=== PATIENT | female | born 1975 | race Caucasian/White ===

== ENCOUNTER 2021-05-29 10:55 | Emergency (ER) | payer OTHER, SELFPAY ==
[2021-05-29 11:05] VITALS: BP 114/66; PULSE 93; RESP 16; TEMP 36.1; O2SAT 100
--- NOTE | 2021-05-29 11:06 | ED.HA ---
HPI - Headache General Chief Complaint: Headache Stated Complaint: headache Time Seen by Provider: 05/29/21 11:07 Source: patient, RN notes reviewed and old records reviewed Mode of arrival: ambulatory Limitations: no limitations History of Present Illness HPI Narrative: 45-year-old female presents to the [facility] with complaints of a headache. Has taken Imitrex prior to arrival. Patient reports that this feels like her typical migraine on the right side of her head. Photo and phono sensitivity. Reports nausea. No blurry vision or change in vision. Related Data Home Medications Medication Instructions Recorded Confirmed carbidopa 25 mg-levodopa 100 mg 1 tablet PO TID 12/27/20 03/26/21 tablet divalproex 250 mg tablet,extended PO 12/27/20 03/26/21 release 24 hr gabapentin 300 mg capsule 300 mg PO TID 12/27/20 03/26/21 naltrexone 50 mg tablet 50 mg PO DAILY 12/27/20 03/26/21 ondansetron 8 mg disintegrating 8 mg PO Q8H 12/27/20 03/26/21 tablet prazosin 1 mg capsule 1 mg PO QHS 12/27/20 03/26/21 prazosin 2 mg capsule 2 mg PO QHS 12/27/20 03/26/21 tizanidine 4 mg capsule 4 mg PO TID PRN 12/27/20 03/26/21 topiramate 50 mg tablet 50 mg PO BID 12/27/20 03/26/21 duloxetine 60 mg capsule,delayed 60 mg PO BID 01/04/21 03/26/21 release Allergies Allergy/AdvReac Type Severity Reaction Status Date / Time latex Allergy Unknown Rash Verified 01/04/21 07:27 Review of Systems Review of Systems: All systems reviewed & are unremarkable except as noted in HPI and below Constitutional: Constitutional: Reports no additional constitutional complaints, Denies chills and Denies fever(s) Eyes: Eyes: Reports as per HPI, Denies change in vision and Reports photophobia ENT: Reports system reviewed and no additional complaints, except as documented Cardiovascular: Cardiovascular: Reports no additional cardiovascular complaints and Denies chest pain Respiratory: Respiratory: Reports no additional respiratory complaints, Denies cough and Denies dyspnea Gastrointestinal: Gastrointestinal: Reports no additional gastrointestinal complaints Musculoskeletal: Musculoskeletal: Reports no additional musculoskeletal complaints Integumentary/Breasts: Skin/Breast: Reports system reviewed and no additional complaints, except as docu Neurologic: Reports as per HPI, Denies confusion, Denies vertigo, Denies dizziness, Denies syncope, Reports headache(s), Denies focal weakness, Denies numbness and Denies weakness Psychiatric: Psychiatric: Reports no additional psychiatric complaints Allergic/Immunologic: Allergic/Immunologic: Reports no additional allergic/immunologic complaints PMFSH Past Medical History Medical History Allergies Anemia Anxiety Fibromyalgia GERD (gastroesophageal reflux disease) Headache IBS (irritable bowel syndrome) Major depressive disorder with current active episode Surgical History Surgical History History of esophagogastroduodenoscopy Family History Family History Father Alcoholism Depression Mother Diabetes mellitus Hypertension Depression Heart disease Cerebrovascular accident Daughter Depression Grandparent Hypertension Heart disease Cerebrovascular accident Social History Social History Smoking status: Never smoker Alcohol intake: current Comments At the time of my signature, I reviewed and agree with the nursing past medical, surgical, social, and family history. There is no relevant family history pertinent to the patient complaint. Exam Const: General: no acute distress, alert and ill appearing chronically Nutritional Appearance: well nourished Orientation/consciousness: patient oriented x3 Limitations: no limitations HENMT: Head: normal to inspection Ears: external ears n
[2021-05-29] MEDS: KETOROLAC (*BKC) 60 MG/2 ML VIAL IM (11:27)
[2021-05-29] MEDS: ONDANSETRON HCL ODT 4 MG TABLET PO (11:28)
== END 2021-05-29 12:14 | disposition home or self-care (01) ==
PROVIDERS: Emergency Provider Nurse Practitioner; PCP Internal Medicine
DX: G43.909 Migraine, unspecified, not intractable, without status migrainosus (principal); D64.9 Anemia, unspecified; M79.7 Fibromyalgia; K21.9 Gastro-esophageal reflux disease without esophagitis
CPT/HCPCS: 96372; 99213; A9270; G0463; J1885

== ENCOUNTER 2021-06-14 17:09 | Emergency (ER) | payer OTHER, SELFPAY ==
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
[2021-06-14 17:08] VITALS: BP 115/78; PULSE 104; RESP 20; TEMP 37.3; O2SAT 99
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
[2021-06-14 18:27] VITALS: BP 116/68; PULSE 104; RESP 19; O2SAT 100
[2021-06-14] MEDS: LORazepam INJ (*CRX) 2 MG/ML VIAL 1 MG IV PUSH (19:34)
== END 2021-06-14 20:47 | disposition home or self-care (01) ==
PROVIDERS: Emergency Provider Emergency Medicine; PCP Internal Medicine
DX: M25.512 Pain in left shoulder (principal); S51.012A Laceration without foreign body of left elbow, initial encounter; S09.90XA Unspecified injury of head, initial encounter; G20 Parkinson's disease; M79.7 Fibromyalgia; K21.9 Gastro-esophageal reflux disease without esophagitis; K58.9 Irritable bowel syndrome, unspecified; F43.10 Post-traumatic stress disorder, unspecified; F41.9 Anxiety disorder, unspecified; Z86.2 Personal history of diseases of the blood and blood-forming organs and certain disorders involving the immune mechanism; V49.40XA Driver injured in collision with unspecified motor vehicles in traffic accident, initial encounter
CPT/HCPCS: 70450; 72125; 73010; 96374; 99284; J2060

== ENCOUNTER 2021-06-19 11:55 | Emergency (ER) | payer OTHER, SELFPAY ==
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
[2021-06-19 12:03] VITALS: BP 130/75; PULSE 85; RESP 20; TEMP 36.5; O2SAT 100
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
--- NOTE | 2021-06-19 12:23 | ECG_ITS ---
Measurements Intervals [place] Rate: 74 P: 63 AR: 144 QRS: 70 QRSD: 79 T: 42 QT: 359 QTc: 399 Interpretive Statements SINUS RHYTHM NORMAL ECG Electronically Signed On 06-19-2021 13:10:05 CDT by Saeed Torres D.O.
[2021-06-19] MEDS: MORPHINE SULFATE (*CRX) 4 MG/ML INJ IV PUSH (12:58)
[2021-06-19] MEDS: ONDANSETRON INJ 4 MG/2 ML VIAL IV PUSH (12:58)
[2021-06-19 13:17] LABS: Basophils Absolute Auto 0.1 K/mm3 (0.0-0.1); Basophils Percent Auto 1.7 % (0.2-1.2); Eosinophils Absolute Auto 0.3 K/mm3 (0-0.3); Eosinophils Percent Auto 5.1 % (0-4.4); Immature Granulocyte Absolute 0.02 K/mm3 (0.00-0.031); Immature Granulocyte Percent A 0.3 % (0-0.5); Lymphocytes Absolute Auto 1.79 K/mm3 (0.9-3.2); Lymphocytes Percent Auto 27.6 % (18.3-44.2); Mean Corpuscular HGB Conc 31.6 g/dl (32-36); Mean Corpuscular Hemoglobin 31.5 pg (26-34); Mean Corpuscular Volume 99.7 fl (80-100); Mean Platelet Volume 10.6 fl (7.4-10.4); Monocytes Absolute Auto 0.5 K/mm3 (0.1-0.6); Monocytes Percent Auto 7.9 % (2.6-8.5); Neutrophils Absolute Auto 3.7 K/mm3 (1.3-6.7); Neutrophils Percent Auto 57.4 % (45.5-73.1); Platelet Count Result 210 k/mm3 (150-375); Red Blood Count 3.81 M/mm3 (4.2-5.4); Red Cell Distribution Width 16.6 % (11.5-14.5); White Blood Count 6.5 K/mm3 (4.5-10.0)
[2021-06-19 13:22] LABS: Add Urine Microscopic? YES; Appearance Urine Cloudy (Clear); Bacteria Urine Trace /hpf; Bilirubin Urine Negative (Negative); Blood Urine Negative (Negative); Budding Yeast Urine Present /hpf; Color Urine Yellow (Yellow); Glucose Urine UA Negative (Negative); Ketones Urine Negative (Negative); Leukocyte Esterase Ur Negative LEU/UL (Negative); Mucus Urine Rare /lpf; Nitrate Urine Negative (Negative); Protein Urine Negative (Negative); Specific Grav Ur 1.017 (1.001-1.035); Squamous Epithelial Cell Urine Many /hpf (Few); Urobilinogen Urine Negative mg/dL (<2.0)
[2021-06-19 13:26] LABS: Alanine Aminotransferase 9 U/L (4-35); Albumin Level 4.5 g/dL (3.5-5.1); Alkaline Phosphatase 67 U/L (38-126); Anion Gap 8 mmol/L (8-16); Aspartate Amino Transferase 20 U/L (14-36); Bilirubin,Total 0.4 mg/dL (0.2-1.3); Blood Urea Nitrogen 13 mg/dL (7-17); Carbon Dioxide 29 mmol/L (22-30); Chloride 104 mmol/L (98-107); Estimated CRCL calculation 55 ml/min; Estimated Glomerular Filt Rate 59; Glucose 91 mg/dL (65-110); Potassium 3.7 mmol/L (3.4-5.0); Sodium 141 mmol/L (137-145)
[2021-06-19 15:31] VITALS: BP 134/83; PULSE 84; RESP 12; O2SAT 100
== END 2021-06-19 15:32 | disposition home or self-care (01) ==
PROVIDERS: Emergency Provider Emergency Medicine; PCP Internal Medicine
DX: F07.81 Postconcussional syndrome (principal); M25.512 Pain in left shoulder; M79.7 Fibromyalgia; K21.9 Gastro-esophageal reflux disease without esophagitis; K58.9 Irritable bowel syndrome, unspecified; Z86.2 Personal history of diseases of the blood and blood-forming organs and certain disorders involving the immune mechanism; V49.40XA Driver injured in collision with unspecified motor vehicles in traffic accident, initial encounter
CPT/HCPCS: 36415; 70450; 71260; 74177; 80053; 81001; 81025; 85025; 87086; 93005; 96374; 96375; 99284; J2270; J2405; Q9967

== ENCOUNTER 2021-07-10 12:25 | Outpatient (CLI) | payer OTHER, SELFPAY ==
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
== END 2021-07-10 12:26 | disposition home or self-care (01) ==
LOC: ANHIMG 12:31
PROVIDERS: PCP Internal Medicine; Visit Provider Internal Medicine
DX: S22.32XA Fracture of one rib, left side, initial encounter for closed fracture (principal); R07.1 Chest pain on breathing
CPT/HCPCS: 71046; 71100

== ENCOUNTER 2021-07-23 12:46 | Outpatient (CLI) | payer OTHER, SELFPAY | END 2021-07-23 12:47 | disposition home or self-care (01) | LOC: ANHAUDASC 12:47 | PROVIDERS: PCP Internal Medicine; Visit Provider Otolaryngology | DX: H90.3 Sensorineural hearing loss, bilateral (principal); H93.12 Tinnitus, left ear | CPT/HCPCS: 92557; 92567 ==

== ENCOUNTER 2021-08-27 09:53 | Outpatient (RCR) | payer OTHER, SELFPAY | END 2021-11-25 23:59 | disposition home or self-care (01) | LOC: ANHAUDASC 09:53 | PROVIDERS: PCP Internal Medicine; Visit Provider Internal Medicine | DX: Z46.1 Encounter for fitting and adjustment of hearing aid (principal) | CPT/HCPCS: V5160; V5261 ==

== ENCOUNTER 2021-10-01 10:35 | Outpatient (CLI) | payer OTHER, SELFPAY ==
--- NOTE | ~2021-10-01 | XR_ITS ---
EXAMINATION: XR facial bones min 3V INDICATION: Tenderness of the left zygomatic arch TECHNIQUE: Five views of the facial bones are obtained. COMPARISON: None available FINDINGS: No facial fracture is identified. The paranasal sinuses appear to be well aerated. The soft tissues are unremarkable. IMPRESSION: 1. No definite facial fracture identified. If there is high clinical concern for facial fracture, fac ial bone CT would be recommended. Reviewed, dictated and finalized at location B. NCIAL REPORTING ANALYST IMPRESSION: 1. No definite facial fracture identified. If there is high clinical concern fo r facial fracture, facial bone CT would be recommended.
== END 2021-10-01 10:36 | disposition home or self-care (01) ==
LOC: ANHIMG 10:38
PROVIDERS: PCP Internal Medicine; Visit Provider Family Medicine
DX: S09.93XD Unspecified injury of face, subsequent encounter (principal)
CPT/HCPCS: 70150

== ENCOUNTER 2021-10-10 13:45 | Outpatient (CLI) | payer OTHER, SELFPAY ==
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
== END 2021-10-10 13:46 | disposition home or self-care (01) ==
LOC: ANHIMG 13:49
PROVIDERS: PCP Internal Medicine; Visit Provider Family Medicine
DX: S09.93XA Unspecified injury of face, initial encounter (principal)
CPT/HCPCS: 70486

== ENCOUNTER 2022-02-11 15:59 | Outpatient (CLI) | payer OTHER, SELFPAY ==
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
== END 2022-02-11 16:00 | disposition home or self-care (01) ==
PROVIDERS: PCP Internal Medicine; Visit Provider Clinical Nurse Specialist
DX: S22.42XA Multiple fractures of ribs, left side, initial encounter for closed fracture (principal); M25.562 Pain in left knee
CPT/HCPCS: 71046; 73562

== ENCOUNTER 2022-02-18 10:38 | Outpatient (CLI) | payer OTHER, SELFPAY ==
--- NOTE | ~2022-02-18 | XR_ITS ---
EXAMINATION: XR_RIBSBI_CR INDICATION: Chest pain TECHNIQUE: 3 views of the bilateral ribs were obtained. COMPARISON: 02/11/2022, 07/10/2021 FINDINGS: No acute rib fracture is identified. There is a healed fracture at the anterolateral aspect of the left third rib. The lungs are free of acute opacities. There is no pleural effusion or pneumo thorax. The cardiomediastinal silhouette is normal. IMPRESSION: 1. No acute cardiopulmonary abnormality or evidence of acute rib fracture. Reviewed, dictated and finalized at location A.
== END 2022-02-18 10:39 | disposition home or self-care (01) ==
PROVIDERS: PCP Internal Medicine; Visit Provider Clinical Nurse Specialist
DX: S22.32XD Fracture of one rib, left side, subsequent encounter for fracture with routine healing (principal)
CPT/HCPCS: 71110

== ENCOUNTER 2022-02-23 11:20 | Outpatient (CLI) | payer OTHER, SELFPAY ==
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
== END 2022-02-23 11:21 | disposition home or self-care (01) ==
PROVIDERS: PCP Internal Medicine; Visit Provider Clinical Nurse Specialist
DX: M25.469 Effusion, unspecified knee (principal); M79.89 Other specified soft tissue disorders
CPT/HCPCS: 73721

== ENCOUNTER 2022-03-06 08:52 | Outpatient (CLI) | payer OTHER, SELFPAY ==
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
== END 2022-03-06 08:53 | disposition home or self-care (01) ==
LOC: ANHIMG 08:54
PROVIDERS: PCP Internal Medicine; Visit Provider Nurse Practitioner
DX: R60.0 Localized edema (principal)
CPT/HCPCS: 93922

== ENCOUNTER 2022-05-14 09:30 | Outpatient (RCR) | payer OTHER, SELFPAY ==
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
--- NOTE | 2022-05-14 09:54 | PTOPPROG ---
Assessment and note entered by Mary Mckinnon, PT, DPT Evaluation Information Assessment Status Progress Diagnosis R knee pain Subjective Information Pt states things are alright . Pt states the tape on her knee has been helping, but when the tape is not off it hurts. She states 0% improvement overall. She reports performing her exercises 2x/ wk. 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 Pt later states therapy is working because she can get up her stairs better and walk a little faster. Pt also later states she can make it through without an increase in pain. Assessment PT Clinical Summary Neema presents to therapy today for her follow up after 4 visits of skilled therapy to treat her R knee pain. She reports poor compliance with her HEP and reportedly cannot tolerate much when she comes to therapy so her progress has been very minimal. Pt does report improved ease while working her [employer] business. She continues to demonstrate poor strength through manual muscle testing but good functional strength. She has not improved her gait speed but demonstrates good fluidity of motion and only a mild R sided antalgic gait. Continuation of skilled physical therapy services are indicated to address the remaining deficits. Pt was informed that if she does not become more compliant with her HEP that progress will continue to be minimal. Plan of Care Interventions Gait Training,Manual Therapy,Neuro Re-education, Patient/Caregiver Education,Therapeutic Activities, Therapeutic Exercise PT Services Indicated Yes Treatment Frequency and 1x/wk for 4 wks Duration These treatments will address the objective and functional deficits as defined above. The patient will be advanced safely and appropriately in order for the patient to progress towards his/her prior level of function. Additional exercises will be introduced and as well as a comprehensive home exercise program upon discharge, if needed, ?to ensure carryover of functional gains achieved in the clinic. This treatment plan has been reviewed and agreement upon by the patient.
--- NOTE | 2022-05-20 15:30 | PCPTNOTE ---
Patient called & cancelled scheduled appointment for 05/21/22 due to having a migraine. Patient is scheduled for her next appointment on 05/31/22.
--- NOTE | 2022-05-31 11:29 | PCPTNOTE ---
Patient called & cancelled scheduled appointment this date due to having a migraine.
--- NOTE | 2022-06-04 08:22 | PCPTNOTE ---
Patient called & cancelled scheduled appointment this date, no reason was given as to why. She also cancelled her re-eval scheduled for next week. Called pt and left voicemail to follow up on this.
--- NOTE | 2022-06-11 08:59 | PTOPDC ---
Assessment and note entered by Mary Mckinnon, PT, DPT Evaluation Information Assessment Status Discharge - Pt Not Present Diagnosis R knee pain Subjective Information Called and left voicemail with patient last week as she cancelled her last treatment and re- evaluation appointments. Left voicemail with instructions to call back and reschedule in the next week if therapy needs to be continues. Assessment PT Clinical Summary Neema completed 5 visits of skilled therapy from to 05/14/22. She will be discharged from therapy services at this time. If she needs to return at a later date, she will need a new order. Plan of Care Treatment Frequency and to be discharged Duration
== END 2022-06-11 11:48 | disposition home or self-care (01) ==
LOC: ANHPT 09:30
PROVIDERS: PCP Internal Medicine; Visit Provider Nurse Practitioner
DX: M25.561 Pain in right knee (principal)
CPT/HCPCS: 97110; 97112; 97161; 97530

== ENCOUNTER 2022-10-08 09:47 | Outpatient (CLI) | payer OTHER, SELFPAY ==
--- NOTE | ~2022-10-08 | XR_ITS ---
Lumbosacral Spine: AP and lateral views Clinical History: Pain Findings: The normal lordotic curve is maintained. The vertebral bodies and posterior elements are i ntact. The intervertebral disc spaces are preserved. The sacroiliac joints are normally outlined. Impression: No significant abnormality. Reviewed, dictated and finalized at [facility]. [employer] Impression: No significant abnormality.
== END 2022-10-08 09:48 | disposition home or self-care (01) ==
PROVIDERS: PCP Internal Medicine; Visit Provider Nurse Practitioner
DX: M54.50 Low back pain, unspecified (principal)
CPT/HCPCS: 72100

== ENCOUNTER 2023-05-02 08:29 | Outpatient (CLI) | payer OTHER, SELFPAY ==
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
== END 2023-05-02 08:30 | disposition home or self-care (01) ==
LOC: ANHNEURO 08:30
PROVIDERS: Visit Provider Emergency Medicine
DX: R56.9 Unspecified convulsions (principal)
CPT/HCPCS: 95816

== ENCOUNTER 2023-07-15 08:36 | Outpatient (CLI) | payer OTHER, SELFPAY ==
--- NOTE | ~2023-07-15 | MR_ITS ---
MRI of the right knee Clinical history: Pain Technique: Coronal proton density and proton density-weighted images, sagittal proton-density and T2 fat-sat images, and axial proton-density fat-saturated images were acquired. Findings: Anterior and posterior cruciate ligaments are intact. Medial collateral ligament and the la teral collateral ligament complex are intact. Popliteus tendon is intact. Medial and lateral menisci are intact, without evidence of tear. Articular cartilage is well preserved throughout the knee. Bone marrow signals are unremarkable. Extensor mechanism is intact. There is small joint effusion. No Montero's cyst. Impression: Small joint effusion. No other significant findings. Reviewed, dictated and finalized at location . [employer]IVERY [employer]ICE [employer]ICER Impression: Small joint effusion. No other significant findings.
== END 2023-07-15 08:37 | disposition home or self-care (01) ==
PROVIDERS: PCP Internal Medicine; Visit Provider Nurse Practitioner Family
DX: M25.561 Pain in right knee (principal); M25.461 Effusion, right knee
CPT/HCPCS: 73721

== ENCOUNTER 2023-07-23 08:43 | Outpatient (CLI) | payer OTHER, SELFPAY ==
--- NOTE | ~2023-07-23 | MR_ITS ---
EXAMINATION: MR brain/brain stem wo con DATE: 07/23/2023 09:27 INDICATION: Seizures TECHNIQUE: Magnetic resonance imaging (MRI) of the brain and brainstem was performed without intraven ous contrast. Sequences included sagittal and axial T1-weighted SE, axial diffusion-weighted FS SE, a xial 3D SWAN, axial T2-weighted FLAIR Propeller, axial T2-weighted Propeller, coronal T2-weighted FLA IR, and coronal T1-weighted 3D FSPGR. Apparent diffusion coefficient (ADC) maps were created. COMPARISON: Head CT dated 06/19/2021 FINDINGS: There are no areas of restricted diffusion to suggest acute infarction. No intracranial hemorrhage or abnormal intracranial mass lesion. There are no intraparenchymal signal abnormalities seen on the o ther pulse sequences. The ventricles are symmetric and normal in size. The bilateral hippocampi appea r normal and symmetric. No evident mata matter heterotopias or other evident neuronal migrational abn ormalities. There are no abnormal extra-axial fluid collections. Flow voids are seen in the cerebral arteries on the T2-weighted sequences consistent with their expected patency. Mucosal thickening thro ughout the paranasal sinuses, moderate in the left maxillary and ethmoid sinuses and otherwise mild. Visualized orbits and soft tissues are unremarkable. IMPRESSION: 1. Sinus disease. Otherwise normal noncontrast brain MRI. Reviewed, dictated and finalized at location A. NISTRATIVE AIDE
== END 2023-07-23 08:44 | disposition home or self-care (01) ==
PROVIDERS: PCP Internal Medicine; Visit Provider Student in an Organized Health Care Education/Training Program
DX: R56.9 Unspecified convulsions (principal); J32.9 Chronic sinusitis, unspecified
CPT/HCPCS: 70551